=== PATIENT | male | born 1980 | race Asian ===

== ENCOUNTER 2019-12-10 05:42 | Emergency (ER) | payer OTHER ==
[~2019-12-10] VITALS: Ht 180.3 cm; Wt 102.1 kg
[2019-12-10 05:42] VITALS: BP_SYST 166
[2019-12-10] MEDS ORDERED: NACL 0.9% 1,000 ML IV ONE (05:57)
[2019-12-10] MEDS ORDERED: DIPHENHYDRAMINE INJ 50 MG/ML VIAL IVP ONE (06:00)
[2019-12-10] MEDS ORDERED: MORPHINE 2 MG/ML INJ. SYRINGE IVP ONE ×3 (06:00→09:30)
[2019-12-10] MEDS ORDERED: ONDANSETRON HCL 4 MG/2 ML VIAL IVP ONE (06:00)
[2019-12-10] MEDS ORDERED: PANTOPRAZOLE SODIUM 40 MG/VIAL (PROTONIX) IVP ONE (06:00)
[2019-12-10 06:31] LABS: BASOPHILS % (AUTO) 0.3 % (0.0-2.0); EOSINOPHILS % (AUTO) 0.1 % (0.0-4.0); HEMOGLOBIN 16.2 g/dL (14.0-18.0); LYMPHOCYTES # (AUTO) 0.6 K/uL (1.0-5.5); LYMPHOCYTES % (AUTO) 5.1 % (20.5-51.5); MEAN CORPUSCULAR HEMOGLOBIN 34 pg (27-31); MEAN CORPUSCULAR HGB CONC 34 % (32-36); MEAN CORPUSCULAR VOLUME 100 fL (79.0-98.0); MONOCYTES # (AUTO) 0.7 K/uL (0.0-1.0); MONOCYTES % (AUTO) 5.9 % (1.7-9.3); NEUTROPHILS # (AUTO) 11.2 K/uL (1.8-7.7); NEUTROPHILS % (AUTO) 88.6 % (40.0-70.0); PLATELET COUNT (AUTO) 188 K/uL (130-430); RED BLOOD CELL COUNT(AUTO) 4.82 MIL/uL (4.2-6.2); RED CELL DISTRIBUTION WIDTH 12.8 % (9.0-15.0); WHITE BLOOD COUNT (AUTO) 12.6 K/uL (4.8-10.8)
[2019-12-10] MEDS ORDERED: LABETALOL 100 MG/ 20ML VIAL IVP ONE (06:45)
[2019-12-10 07:08] LABS: CALCIUM 9.3 mg/dL (8.4-11.0); CREATININE 1.11 mg/dL (0.55-1.30); POTASSIUM 3.8 mmol/L (3.5-5.1)
[2019-12-10] MEDS ORDERED: hydrALAZINE HCL 20 MG/ML VIAL IVP ONE (07:15)
[2019-12-10] MEDS ORDERED: MAG HYDROX/AL HYDROX/SIMETH 30 ML, DICYCLOMINE HCL 20 MG, LIDOCAINE VISCOUS 2% 15ML (PO... PO ONE ×3 (07:15)
[2019-12-10 07:16] LABS: ALBUMIN 3.9 g/dL (3.4-4.8); TOTAL BILIRUBIN 2.5 mg/dL (0.0-1.0)
[2019-12-10 08:31] LABS: BILIRUBIN,URINE 2+ (NEGATIVE); BLOOD, URINE NEGATIVE (NEGATIVE); CLARITY/URINE SL CLOUDY (CLEAR); COLOR,URINE ORANGE (YELLOW); GLUCOSE,URINE NEGATIVE (NEGATIVE); KETONES,URINE 1+ (NEGATIVE); LEUKOCYTE ESTERASE ,URINE NEGATIVE (NEGATIVE); NITRITE, URINE POSITIVE (NEGATIVE); PH,URINE 5.5 (5.0-8.0); PROTEIN URINE 3+ (NEGATIVE)
[2019-12-10 08:48] LABS: BACTERIA,URINE MODERATE /HPF (None Seen); RBC,URINE 0-3 /HPF (0-3); WBC,URINE 0-3 /HPF (0-3)
[2019-12-10 11:25] VITALS: BP_SYST 126
== END 2019-12-10 11:25 | disposition short-term general hospital (02) ==
LOC: SED 05:42
DX: K85.90 Acute pancreatitis without necrosis or infection, unspecified (principal); R10.13 Epigastric pain; I10 Essential (primary) hypertension; R11.2 Nausea with vomiting, unspecified
CPT/HCPCS: 36415; 80053; 81000; 83690; 85025; 87086; 96361; 96374; 96375; 96376; 99285; J7030

== ENCOUNTER 2020-01-29 10:44 | Emergency (ER) | payer OTHER ==
[~2020-01-29] VITALS: Ht 180.3 cm; Wt 112.5 kg
[2020-01-29 10:49] VITALS: BP_SYST 142
--- NOTE | 2020-01-29 10:55 | NUR ---
Patient triaged and placed in waiting room. VSS and patient appears in no acute distress at this time. Awaiting available bed, and MD notified of need for MSE.
[2020-01-29 11:15] VITALS: BP_SYST 142
--- NOTE | 2020-01-29 11:15 | NUR ---
Patient left without being seen.
[2020-01-29] MEDS ORDERED: LOSA25TA18 PO (16:36)
== END 2020-01-29 11:15 | disposition left against medical advice (07) ==
LOC: SED 10:44
DX: R10.9 Unspecified abdominal pain (principal); Z53.21 Procedure and treatment not carried out due to patient leaving prior to being seen by health care provider

== ENCOUNTER 2020-01-29 11:34 | Inpatient (IN) | payer OTHER ==
[~2020-01-29] VITALS: Ht 180.3 cm; Wt 106.6 kg
[2020-01-29 11:41] VITALS: BP_SYST 157
--- NOTE | 2020-01-29 11:45 | NUR ---
Patient triaged and placed in waiting room. VSS and patient appears in no acute distress at this time. Awaiting available bed, and MD notified of need for MSE.
--- NOTE | 2020-01-29 11:45 | NUR ---
ER Dr. Patterson in triage examining patient.
[2020-01-29 13:23] LABS: BASOPHILS % (AUTO) 0.1 % (0.0-2.0); HEMATOCRIT 51.1 % (36-54); HEMOGLOBIN 16.8 g/dL (14.0-18.0); LYMPHOCYTES # (AUTO) 0.8 K/uL (1.0-5.5); LYMPHOCYTES % (AUTO) 5.4 % (20.5-51.5); MEAN CORPUSCULAR HEMOGLOBIN 33 pg (27-31); MEAN CORPUSCULAR HGB CONC 33 % (32-36); MEAN CORPUSCULAR VOLUME 100 fL (79.0-98.0); MONOCYTES # (AUTO) 0.6 K/uL (0.0-1.0); MONOCYTES % (AUTO) 4.1 % (1.7-9.3); NEUTROPHILS # (AUTO) 12.5 K/uL (1.8-7.7); NEUTROPHILS % (AUTO) 90.4 % (40.0-70.0); PLATELET COUNT (AUTO) 247 K/uL (130-430); RED BLOOD CELL COUNT(AUTO) 5.12 MIL/uL (4.2-6.2); RED CELL DISTRIBUTION WIDTH 13.8 % (9.0-15.0); WHITE BLOOD COUNT (AUTO) 13.8 K/uL (4.8-10.8)
[2020-01-29 13:29] LABS: POTASSIUM 4.6 mmol/L (3.5-5.1)
[2020-01-29 13:30] LABS: CALCIUM 8.9 mg/dL (8.4-11.0); CREATININE 1.05 mg/dL (0.55-1.30)
[2020-01-29 13:42] LABS: ALBUMIN 4.3 g/dL (3.4-4.8); TOTAL BILIRUBIN 1.5 mg/dL (0.0-1.0)
[2020-01-29 13:58] LABS: PROTHROMBIN TIME 9.9 SECS (9.5-12.5)
[2020-01-29] MEDS ORDERED: MORPHINE 4 MG/ML INJ. SYRINGE IVP ONE (14:30)
[2020-01-29] MEDS ORDERED: ONDANSETRON HCL 4 MG/2 ML VIAL IVP ONE (14:30)
[2020-01-29 14:44] LABS: CHOLESTEROL 173 mg/dL (<200); HDL CHOLESTEROL 49 mg/dL (>45); LDL CHOLESTEROL 83 mg/dL (<100); TRIGLYCERIDES 247 mg/dL (30-150)
--- NOTE | 2020-01-29 14:58 | NUR ---
Patient to ER bed 4 to gown for evaluation. Side rails up.
[2020-01-29] MEDS ORDERED: NACL 0.9% 1,000 ML IV ONE (15:30)
--- NOTE | 2020-01-29 16:33 | NUR ---
DR ESCOBEDO IN TO ASSESS
[2020-01-29] MEDS ORDERED: LOSA25TA18 PO (16:36)
--- NOTE | 2020-01-29 16:36 | NUR ---
Medication reconciliation completed with information provided by . Any prior medication reconciliation on file was reviewed and corrected.
[2020-01-29] MEDS ORDERED: HYDROmorphone 2 MG/ML VIAL IVP PRN (16:45)
[2020-01-29] MEDS ORDERED: FAMOTIDINE PF 20 MG/2 ML VIAL IVP ONE (16:45)
[2020-01-29] MEDS ORDERED: FOLIC ACID 1 MG, THIAMINE HCL 100 MG, MAGNESIUM SULFATE 1 GM, MVI 10 ML in NACL 0.9% 1,... IV ONE (16:45)
[2020-01-29] MEDS ORDERED: NALOXONE HCL 0.4 MG/ML AMP (NARCAN) IVP PRN ×2 (16:45)
[2020-01-29] MEDS ORDERED: FOLIC ACID 1 MG, MVI 10 ML in NACL 0.9% 1,000 ML IV ONE (16:45)
[2020-01-29] MEDS ORDERED: THIAMINE HCL 100 MG, MAGNESIUM SULFATE 1 GM in NS 100 ML IV ONE (16:45)
[2020-01-29] MEDS ORDERED: LORazepam 2 MG/ML VIAL IVP PRN (17:00)
[2020-01-29] MEDS: PIPERACILLIN/TAZO 3.375/DEX-IS 50 ML IV SCH ×2 (18:31→23:12)
[2020-01-29] MEDS: chlordiazePOXIDE HCL 25 MG CAPSULE PO SCH ×2 (18:39→20:12)
[2020-01-29] MEDS: cloNIDine HCL 0.1 MG TABLET PO PRN (18:39)
--- NOTE | 2020-01-29 18:48 | NUR ---
Patient will be admitted to [facility]. Admitted tTELE unit. Will go to room 101 Belongings list completed. Complete and up to date summary report printed. SBAR report to be given at bedside with opportunity for questions.
--- NOTE | 2020-01-29 18:58 | NUR ---
Admission Note Received patient from ER with diagnosis of ACUTE PANCREATITIS. Initial Plan of Care discussed-patient verbalized understanding. Oriented to room, call light, pain management and safety.
[2020-01-29] MEDS: FAMOTIDINE PF 20 MG/2 ML VIAL IVP SCH (20:12)
[2020-01-29] MEDS: HYDROmorphone 2 MG/ML VIAL IVP PRN (20:13)
[2020-01-29 20:22] VITALS: BP_SYST 155
--- NOTE | 2020-01-29 21:00 | NUR ---
ROUNDS/REFUSED SCD AND BED ALARM pt resting in bed at this time, no s/s of acute distress noted. hob raised, pt on room air, tolerating well, SPO2 at 96%, breathing is unlabored. iv site patent, no signs of infiltration and infection noted. ivf infusing well. bed alarm is off, educated pt on importance of having bed alarm on for safety, will encourage throughout shift. bed locked and at lowest position. pt refused SCD at this time, educated pt on benefits and purpose of having SCD's on, will encourage pt throughout shift. call light with pt, verbalized and demonstrated back proper use of call light if help is needed. will continue to monitor.
--- NOTE | 2020-01-29 23:00 | NUR ---
ROUNDS pt resting in bed, no signs of discomfort noted, hob raised. safety and fall precautions in place. will continue to monitor.
[2020-01-30] VITALS: BP_SYST 161
[2020-01-30] MEDS: HYDROmorphone 2 MG/ML VIAL IVP PRN ×3 (00:17→22:10)
[2020-01-30] MEDS: cloNIDine HCL 0.1 MG TABLET PO PRN (00:27)
[2020-01-30] MEDS: TEMAZEPAM 15 MG CAPSULE PO PRN (00:28)
--- NOTE | 2020-01-30 01:00 | NUR ---
ROUNDS pt resting in bed at this time, no s/s of acute distress noted. hob raised. safety and fall precautions maintained. will continue to monitor.
--- NOTE | 2020-01-30 03:56 | NUR ---
ROUNDS pt resting in bed, no signs of discomfort noted. hob raised. safety and fall precautions maintained. will continue to monitor.
--- NOTE | 2020-01-30 05:00 | NUR ---
ROUNDS pt resting in bed, no s/s of acute distress noted, hob raised. fall and safety precautions in place. will continue to monitor.
[2020-01-30] MEDS: PIPERACILLIN/TAZO 3.375/DEX-IS 50 ML IV SCH ×4 (05:06→23:10)
[2020-01-30 06:15] LABS: BASOPHILS % (AUTO) 0.2 % (0.0-2.0); EOSINOPHILS % (AUTO) 0.1 % (0.0-4.0); HEMOGLOBIN 15.7 g/dL (14.0-18.0); LYMPHOCYTES # (AUTO) 0.7 K/uL (1.0-5.5); LYMPHOCYTES % (AUTO) 6.3 % (20.5-51.5); MEAN CORPUSCULAR HEMOGLOBIN 34 pg (27-31); MEAN CORPUSCULAR HGB CONC 33 % (32-36); MEAN CORPUSCULAR VOLUME 101 fL (79.0-98.0); MONOCYTES # (AUTO) 0.9 K/uL (0.0-1.0); MONOCYTES % (AUTO) 8.4 % (1.7-9.3); NEUTROPHILS # (AUTO) 8.8 K/uL (1.8-7.7); PLATELET COUNT (AUTO) 174 K/uL (130-430); RED BLOOD CELL COUNT(AUTO) 4.66 MIL/uL (4.2-6.2); RED CELL DISTRIBUTION WIDTH 13.6 % (9.0-15.0); WHITE BLOOD COUNT (AUTO) 10.3 K/uL (4.8-10.8)
[2020-01-30 06:26] LABS: ALBUMIN 3.3 g/dL (3.4-4.8); CREATININE 1.11 mg/dL (0.55-1.30); TOTAL BILIRUBIN 1.8 mg/dL (0.0-1.0)
--- NOTE | 2020-01-30 06:34 | NUR ---
CLOSING NOTES pt resting in bed at this time, no s/s of acute distress noted. hob raised, pt on room air, tolerating well, breathing is unlabored. iv site patent, no signs of infiltration and infection noted. bed alarm is off, educated pt on importance of having bed alarm on for safety, encouraged pt throughout shift. pt refused scd, educated pt on benefits and purpose of scd, encouraged pt throughout shift. call light with pt, verbalizes and demonstrated back proper use of call light if help is needed. all needs met throughout shift, will continue to monitor until report is given to day shift rn.
--- NOTE | 2020-01-30 07:28 | NUR ---
Opening Note received bedside SBAR report from warehouse worker 2nd shift RN, patient resting in bed, respirations even and unlabored on room air, patient is NPO awaiting abdominal ultrasound this morning, no acute distress noted, educated patient on use of call light and asked to call for assistance, patient verbalized understanding, call light in reach, educated patient on use of bed alarm for patient safety, patient refusing bed alarm, bed in low and locked position.
[2020-01-30 08:00] VITALS: BP_SYST 149
[2020-01-30] MEDS: FAMOTIDINE PF 20 MG/2 ML VIAL IVP SCH ×2 (08:08→20:07)
[2020-01-30] MEDS: FOLIC ACID 1 MG TABLET PO SCH (08:09)
[2020-01-30] MEDS: THIAMINE HCL 100 MG TABLET PO SCH (08:09)
[2020-01-30] MEDS: chlordiazePOXIDE HCL 25 MG CAPSULE PO SCH ×4 (08:09→20:06)
--- NOTE | 2020-01-30 08:45 | NUR ---
Physician Rounds Dr. Gordillo at bedside examining patient, informed Dr. Tracey of critical lab lipase [id number], no new orders.
--- NOTE | 2020-01-30 09:50 | NUR ---
Ultrasound spoke with a and p technician Cynthia, per Celia they will not be able to do patients abdominal US until this afternoon, okay to give patient breakfast and then make patient NPO awaiting abdominal US this afternoon.
[2020-01-30] MEDS: LR 1,000 ML IV SCH ×3 (10:17→23:12)
[2020-01-30] MEDS ORDERED: CARVEDILOL 6.25 MG TABLET (COREG) PO ONE (11:15)
--- NOTE | 2020-01-30 11:40 | NUR ---
RN Rounds patient resting in bed, respirations even and unlabored on room air, patient reports pain is controlled at this time, no acute distress noted.
[2020-01-30 12:00] VITALS: BP_SYST 174
[2020-01-30 13:34] VITALS: BP_SYST 145
--- NOTE | 2020-01-30 13:35 | NUR ---
RN Rounds patient resting in bed, respirations even and unlabored on room air, patient reports pain is controlled at this time, no acute distress noted.
--- NOTE | 2020-01-30 15:50 | NUR ---
RN Rounds patient resting in bed, patient reports that pain is well controlled at this time, provided patient with clean gown.
[2020-01-30 17:41] VITALS: BP_SYST 155
--- NOTE | 2020-01-30 17:45 | NUR ---
RN Rounds patient sitting up in bed eating dinner, tolerating clear liquid diet well, patient denies any nausea or vomiting, patient reports that pain is controlled at this time, no acute distress noted.
--- NOTE | 2020-01-30 19:15 | NUR ---
OPENING NOTES/REFUSED SCD AND BED ALARM received report from day shift rn. no s/s of acute distress noted. pt on room air, tolerating well, hob raised. iv site patent, no signs of infiltration and infection noted. ivf infusing well. pt refused scd's, educated pt on purpose and benefits of having scd's on, will encourage pt throughout shift. pt refused bed alarm, educated pt on importance of having bed alarm for safety, will encourage throughout shift. bed locked and at lowest position. call light with pt, verbalizes and demonstrate back proper use of call light if assistance is needed. will continue to monitor.
--- NOTE | 2020-01-30 19:15 | NUR ---
Closing Note bedside SBAR report given to receiving RN, patient resting in bed, respirations even and unlabored on room air, patient reports pain is controlled, no acute distress noted, educated patient on use of call light and asked to call for assistance, patient verbalized understanding, call light in reach, educated patient on use of bed alarm for patient safety, patient refusing bed alarm, bed in low and locked position, care endorsed to kiss machine operator RN.
[2020-01-30 20:00] VITALS: BP_SYST 145
[2020-01-30] MEDS: CARVEDILOL 6.25 MG TABLET (COREG) PO SCH (20:07)
--- NOTE | 2020-01-30 21:00 | NUR ---
ROUNDS pt resting in bed, no signs of discomfort noted, hob raised. safety and fall precautions in place, will continue to monitor.
--- NOTE | 2020-01-30 23:00 | NUR ---
ROUNDS pt resting in bed, no s/s of acute distress, hob raised. fall and safety precautions in place. will continue to monitor.
[2020-01-31] VITALS: BP_SYST 151
[2020-01-31] MEDS: TEMAZEPAM 15 MG CAPSULE PO PRN (00:56)
--- NOTE | 2020-01-31 01:00 | NUR ---
ROUNDS pt resting at this time, no signs of discomfort noted, hob raised. safety and fall precautions in place. will continue to monitor.
--- NOTE | 2020-01-31 03:00 | NUR ---
ROUNDS pt asleep, no signs of discomfort noted, hob raised. safety and fall precautions in place. will continue to monitor.
--- NOTE | 2020-01-31 05:00 | NUR ---
ROUNDS pt resting at this time, no signs of discomfort noted, hob raised. safety and fall precautions in place. will continue to monitor.
[2020-01-31] MEDS: PIPERACILLIN/TAZO 3.375/DEX-IS 50 ML IV SCH ×2 (06:02→11:33)
[2020-01-31] MEDS: LR 1,000 ML IV SCH ×2 (06:02→11:48)
[2020-01-31 06:20] LABS: BASOPHILS % (AUTO) 0.2 % (0.0-2.0); EOSINOPHILS # (AUTO) 0.1 K/uL (0.0-0.4); EOSINOPHILS % (AUTO) 0.8 % (0.0-4.0); HEMATOCRIT 39.1 % (36-54); LYMPHOCYTES # (AUTO) 0.7 K/uL (1.0-5.5); LYMPHOCYTES % (AUTO) 7.2 % (20.5-51.5); MEAN CORPUSCULAR HEMOGLOBIN 34 pg (27-31); MEAN CORPUSCULAR HGB CONC 33 % (32-36); MEAN CORPUSCULAR VOLUME 101 fL (79.0-98.0); MONOCYTES # (AUTO) 0.9 K/uL (0.0-1.0); MONOCYTES % (AUTO) 8.8 % (1.7-9.3); NEUTROPHILS # (AUTO) 8.2 K/uL (1.8-7.7); PLATELET COUNT (AUTO) 127 K/uL (130-430); RED BLOOD CELL COUNT(AUTO) 3.89 MIL/uL (4.2-6.2); RED CELL DISTRIBUTION WIDTH 13.4 % (9.0-15.0); WHITE BLOOD COUNT (AUTO) 9.8 K/uL (4.8-10.8)
--- NOTE | 2020-01-31 06:38 | NUR ---
CLOSING NOTES pt resting in bed at this time, no s/s of acute distress noted. hob raised, pt on room air, tolerating well, breathing is unlabored. iv site patent, no signs of infiltration and infection noted. bed alarm is off, educated pt on importance of having bed alarm on for safety, encouraged pt throughout shift. pt refused scd's, educated pt on benefits and purpose of scd's, encouraged pt throughout shift. call light with pt, verbalizes and demonstrated back proper use of call light if help is needed. safety and fall precautions maintained throughout shift, all needs met throughout shift, will continue to monitor until report is given to day shift rn.
[2020-01-31 06:47] LABS: ALBUMIN 2.9 g/dL (3.4-4.8); CALCIUM 8.2 mg/dL (8.4-11.0); CREATININE 0.96 mg/dL (0.55-1.30); POTASSIUM 3.5 mmol/L (3.5-5.1); TOTAL BILIRUBIN 1.3 mg/dL (0.0-1.0)
--- NOTE | 2020-01-31 07:13 | NUR ---
Opening Note received bedside SBAR report from retail shift supervisor RN, patient resting in bed, respirations even and unlabored on room air, no acute distress noted, patient reports pain is controlled at this time, IV fluids infusing well, no redness or swelling noted to left forearm IV site, educated patient on use of call light and asked to call for assistance, patient verbalized understanding, call light in reach, educated patient on use of bed alarm for patient safety, patient refusing bed alarm, bed in low and locked position.
[2020-01-31 08:00] VITALS: BP_SYST 155
[2020-01-31] MEDS: THIAMINE HCL 100 MG TABLET PO SCH (08:39)
[2020-01-31] MEDS: chlordiazePOXIDE HCL 25 MG CAPSULE PO SCH ×2 (08:39→11:48)
[2020-01-31] MEDS: FOLIC ACID 1 MG TABLET PO SCH (08:39)
[2020-01-31] MEDS: FAMOTIDINE PF 20 MG/2 ML VIAL IVP SCH (08:39)
[2020-01-31] MEDS: CARVEDILOL 6.25 MG TABLET (COREG) PO SCH (08:47)
--- NOTE | 2020-01-31 09:51 | NUR ---
RN Rounds patient resting in bed, patient reports pain is controlled, patient tolerating clear liquid diet well, patient denies any nausea or vomiting.
--- NOTE | 2020-01-31 11:43 | NUR ---
RN Rounds patient sitting up in bed, respirations even and unlabored on room air, patient reports pain is controlled at this time, no acute distress noted.
[2020-01-31 12:00] VITALS: BP_SYST 146
--- NOTE | 2020-01-31 14:00 | NUR ---
RN Rounds patient resting in bed, respirations even and unlabored on room air, patient reports pain is controlled, no acute distress noted.
[2020-01-31 16:00] VITALS: BP_SYST 146
--- NOTE | 2020-01-31 16:28 | NUR ---
Physician Rounds Dr. Downey bedside speaking with patient and patients May on the telephone, Dr. Downey discussed patients labs/CT scan/US abdomen results with patient and his , Dr. Downey informed patient and his of new prescriptions and that a full liquid low fat diet should be follow at home for the first few days, patient and patients verbalized understanding. Addendum: 01/31/20 at 1733 by Lucia Torres RN add to above note- Dr. Downey educated patient and patients on importance of alcohol cessation and the risk of drinking alcohol, patient and patients verbalized understanding.
[2020-01-31 16:36] VITALS: BP_SYST 146
[2020-01-31] MEDS ORDERED: CARV6.2554 PO (16:40)
[2020-01-31] MEDS ORDERED: THIA100T73 PO (16:40)
[2020-01-31] MEDS ORDERED: FOLI-43 PO (16:41)
[2020-01-31] MEDS ORDERED: LIB10 PO (16:41)
--- NOTE | 2020-01-31 17:05 | NUR ---
Discharge provided patient with discharge packet and instructions, patient verbalized understanding, written prescription provided, IV catheter removed, catheter intact, no bleeding, steady gait noted, no acute distress noted, patient contacted his father, patient taken to parking lot via wheelchair, patient accompanied by his father for discharge home, all belongings sent with patient.
== END 2020-01-31 17:15 | disposition home or self-care (01) | DRG 439 ==
LOC: SED 11:34 → STU 16:25
PROVIDERS: ADMIT Internal Medicine; ATTEND Internal Medicine
DX: K85.20 Alcohol induced acute pancreatitis without necrosis or infection (principal); R65.10 Systemic inflammatory response syndrome (SIRS) of non-infectious origin without acute organ dysfunction; K70.10 Alcoholic hepatitis without ascites; I10 Essential (primary) hypertension; E66.9 Obesity, unspecified; Y90.9 Presence of alcohol in blood, level not specified; E78.00 Pure hypercholesterolemia, unspecified; F10.20 Alcohol dependence, uncomplicated; E78.5 Hyperlipidemia, unspecified; Z68.32 Body mass index [BMI] 32.0-32.9, adult; Z79.899 Other long term (current) drug therapy
CPT/HCPCS: 36415; 76700-TC; 80053; 80061; 82150-TC; 83605; 83615-TC; 83690-TC; 85025; 85610-TC; 85730-TC; 87040-TC; 96361; 96365; 96368; 96375; 99285; G0378; J1170; J2270; J2405; J2543; J3411; J3475; J3490; J7030; J7120

== ENCOUNTER 2021-03-14 10:56 | Emergency (ER) | payer OTHER, SELFPAY ==
[~2021-03-14] VITALS: Ht 180.3 cm; Wt 104.3 kg
[~2021-03-14 10:56] MED LIST: CARV6.2554 PO; FAMO20TA8 PO; FOLI-43 PO; LIB10 PO; LOSA25TA18 PO; LOSA50TA3 PO; THIA100T73 PO; Thiamine Hcl PO
[2021-03-14 11:29] VITALS: BP_SYST 146
[2021-03-14] MEDS ORDERED: KETOROLAC TROMETHAMINE 60 MG/2 ML VIAL IM ONE (12:00)
[2021-03-14 12:30] LABS: BASOPHILS % (AUTO) 0.5 % (0.0-2.0); EOSINOPHILS # (AUTO) 0.1 K/uL (0.0-0.4); HEMATOCRIT 44.7 % (36-54); HEMOGLOBIN 15.2 g/dL (14.0-18.0); LYMPHOCYTES # (AUTO) 0.8 K/uL (1.0-5.5); MEAN CORPUSCULAR HEMOGLOBIN 34 pg (27-31); MEAN CORPUSCULAR HGB CONC 34 % (32-36); MEAN CORPUSCULAR VOLUME 100 fL (79.0-98.0); MONOCYTES # (AUTO) 0.7 K/uL (0.0-1.0); MONOCYTES % (AUTO) 10.3 % (1.7-9.3); NEUTROPHILS # (AUTO) 4.9 K/uL (1.8-7.7); NEUTROPHILS % (AUTO) 76.2 % (40.0-70.0); PLATELET COUNT (AUTO) 205 K/uL (130-430); RED BLOOD CELL COUNT(AUTO) 4.49 MIL/uL (4.2-6.2); WHITE BLOOD COUNT (AUTO) 6.4 K/uL (4.8-10.8)
[2021-03-14 12:48] LABS: CALCIUM 9.5 mg/dL (8.4-11.0); CREATININE 1.07 mg/dL (0.55-1.30); POTASSIUM 4.4 mmol/L (3.5-5.1)
[2021-03-14 12:54] LABS: ALBUMIN 4.2 g/dL (3.4-4.8); TOTAL BILIRUBIN 1.3 mg/dL (0.0-1.0)
[2021-03-14] MEDS ORDERED: HYDR-3917 PO (13:12)
[2021-03-14 13:25] VITALS: BP_SYST 132
== END 2021-03-14 13:22 | disposition home or self-care (01) ==
LOC: SED 10:56
DX: K85.90 Acute pancreatitis without necrosis or infection, unspecified (principal); Z79.899 Other long term (current) drug therapy
CPT/HCPCS: 36415; 80053; 81002; 83690; 85025; 96372; 99283; J1885

== ENCOUNTER 2023-01-21 14:57 | Emergency (ER) | payer OTHER ==
[~2023-01-21] VITALS: Ht 180.3 cm; Wt 104.3 kg
[~2023-01-21 14:57] MED LIST changes: -FAMO20TA8 PO; -FOLI-43 PO; +HYDR-3917 PO; -LIB10 PO; -LOSA50TA3 PO; -THIA100T73 PO; -Thiamine Hcl PO
[2023-01-21 16:06] VITALS: BP_SYST 174; PULSE 101; RESP 18; TEMP 98.2; O2SAT 98
[2023-01-21 16:31] LABS: BASOPHILS % (AUTO) 0.3 % (0.0-2.0); EOSINOPHILS % (AUTO) 0.1 % (0.0-4.0); HEMATOCRIT 48.1 % (36-54); LYMPHOCYTES # (AUTO) 0.7 K/uL (1.0-5.5); LYMPHOCYTES % (AUTO) 4.6 % (20.5-51.5); MEAN CORPUSCULAR HEMOGLOBIN 33 pg (27-31); MEAN CORPUSCULAR HGB CONC 33 % (32-36); MEAN CORPUSCULAR VOLUME 99 fL (79.0-98.0); MONOCYTES # (AUTO) 0.6 K/uL (0.0-1.0); MONOCYTES % (AUTO) 4.3 % (1.7-9.3); NEUTROPHILS # (AUTO) 13.1 K/uL (1.8-7.7); NEUTROPHILS % (AUTO) 90.7 % (40.0-70.0); PLATELET COUNT (AUTO) 225 K/uL (130-430); RED BLOOD CELL COUNT(AUTO) 4.88 MIL/uL (4.2-6.2); WHITE BLOOD COUNT (AUTO) 14.5 K/uL (4.8-10.8)
[2023-01-21 16:33] LABS: BLOOD, URINE NEGATIVE (NEGATIVE); CLARITY/URINE CLEAR (CLEAR); GLUCOSE,URINE NEGATIVE (NEGATIVE); KETONES,URINE 3+ (NEGATIVE); LEUKOCYTE ESTERASE ,URINE NEGATIVE (NEGATIVE); NITRITE, URINE NEGATIVE (NEGATIVE); PH,URINE 8.5 (5.0-8.0); PROTEIN URINE 2+ (NEGATIVE)
[2023-01-21 16:37] LABS: ANION GAP 12 (5-15); CALCIUM 9.4 mg/dL (8.4-11.0); CHLORIDE 101 mmol/L (98-107); CREATININE 1.04 mg/dL (0.55-1.30); GFR AFRICAN AMERICAN 102 mL/min (>90); GLUCOSE 156 mg/dL (74-106); UREA NITROGEN, BLOOD 14 mg/dL (8-21)
[2023-01-21 16:47] LABS: ACETONE, SERUM NEGATIVE (NEGATIVE)
[2023-01-21 16:51] LABS: ALANINE AMINOTRANSFERASE 97 U/L (12-78); ALBUMIN 4.5 g/dL (3.4-4.8); AMYLASE 415 U/L (0-100); ASPARTATE AMINOTRANSFERASE 48 U/L (10-37); LACTATE DEHYDROGENASE 189 U/L (85-227); LIPASE 1664 U/L (73-393); TOTAL BILIRUBIN 1.4 mg/dL (0.0-1.0)
[2023-01-21 16:53] LABS: COLOR,URINE AMBER (YELLOW)
[2023-01-21 16:54] LABS: BILIRUBIN,URINE 1+ (NEGATIVE)
[2023-01-21 16:55] LABS: BACTERIA,URINE FEW /HPF (None Seen); MUCUS,URINE None Seen /LPF (None Seen); RBC,URINE 0-3 /HPF (0-3); WBC,URINE 0-3 /HPF (0-3)
[2023-01-21] MEDS ORDERED: ONDA-8 TL (17:10)
[2023-01-21] MEDS ORDERED: TRAM50TA2 PO (17:10)
[2023-01-21] MEDS ORDERED: IBUP-1971 PO (17:10)
[2023-01-21] MEDS ORDERED: NACL 0.9% 2,000 ML IV ONE (17:15)
[2023-01-21] MEDS ORDERED: MORPHINE 4 MG INJ. 4 MG/ML VIAL IVP ONE (17:15)
[2023-01-21] MEDS ORDERED: ONDANSETRON HCL 4 MG/2 ML VIAL IVP ONE (17:15)
[2023-01-21 18:20] VITALS: BP_SYST 172; PULSE 97; RESP 18; TEMP 98.1; O2SAT 97
== END 2023-01-21 18:20 | disposition home or self-care (01) ==
LOC: SED 14:57
DX: K85.90 Acute pancreatitis without necrosis or infection, unspecified (principal); R10.13 Epigastric pain; R11.0 Nausea; Z79.899 Other long term (current) drug therapy
CPT/HCPCS: 99285; 74176; 96374; 96361; 96375; 80053; 81000; 82009; 82150; 83615; 83690; 85025; 36415; 76376; 83605; J2405; J2270; J7030

== ENCOUNTER 2023-01-23 10:20 | Emergency (ER) | payer OTHER ==
[~2023-01-23] VITALS: Ht 172.7 cm; Wt 81.6 kg
[~2023-01-23 10:20] MED LIST changes: +IBUP-1971 PO; +ONDA-8 TL; +TRAM50TA2 PO
[2023-01-23 10:32] VITALS: BP_SYST 166; PULSE 85; RESP 20; TEMP 98.3; O2SAT 98
[2023-01-23 10:46] LABS: BASOPHILS % (AUTO) 0.2 % (0.0-2.0); EOSINOPHILS % (AUTO) 0.4 % (0.0-4.0); HEMATOCRIT 46.7 % (36-54); HEMOGLOBIN 15.6 g/dL (14.0-18.0); LYMPHOCYTES # (AUTO) 0.9 K/uL (1.0-5.5); LYMPHOCYTES % (AUTO) 9.5 % (20.5-51.5); MEAN CORPUSCULAR HEMOGLOBIN 33 pg (27-31); MEAN CORPUSCULAR HGB CONC 33 % (32-36); MEAN CORPUSCULAR VOLUME 98 fL (79.0-98.0); MONOCYTES # (AUTO) 0.8 K/uL (0.0-1.0); MONOCYTES % (AUTO) 8.2 % (1.7-9.3); NEUTROPHILS # (AUTO) 7.8 K/uL (1.8-7.7); NEUTROPHILS % (AUTO) 81.7 % (40.0-70.0); PLATELET COUNT (AUTO) 202 K/uL (130-430); RED BLOOD CELL COUNT(AUTO) 4.75 MIL/uL (4.2-6.2); WHITE BLOOD COUNT (AUTO) 9.6 K/uL (4.8-10.8)
[2023-01-23 11:05] LABS: ANION GAP 12 (5-15); CALCIUM 9.4 mg/dL (8.4-11.0); CHLORIDE 97 mmol/L (98-107); CREATININE 1.04 mg/dL (0.55-1.30); GFR AFRICAN AMERICAN 102 mL/min (>90); GLUCOSE 124 mg/dL (74-106); UREA NITROGEN, BLOOD 14 mg/dL (8-21)
--- NOTE | 2023-01-23 11:10 | NUR ---
Pt brought by self, A&Ox4, pt presents to ER for follow up after pancreatitis episode few days ago, pt states he feels better, denies N/V/D, skin pink and warm, cap refill <3, VSS
--- NOTE | 2023-01-23 11:15 | NUR ---
Dr Patterson evaluating patient at bedside
[2023-01-23 11:37] LABS: ALANINE AMINOTRANSFERASE 58 U/L (12-78); ALBUMIN 4.2 g/dL (3.4-4.8); AMYLASE 176 U/L (0-100); ASPARTATE AMINOTRANSFERASE 25 U/L (10-37); LIPASE 704 U/L (73-393); TOTAL BILIRUBIN 1.3 mg/dL (0.0-1.0)
[2023-01-23 12:23] LABS: ACETONE, SERUM POSITIVE (NEGATIVE)
--- NOTE | 2023-01-23 12:23 | NUR ---
Patient given written and verbal discharge instructions and verbalizes understanding. ER MD discussed with patient the results and treatment provided. Patient in stable condition. ID arm band removed. No Rx given. Patient educated on pain management and to follow up with PMD. Pain Scale 3/10 . Opportunity for questions provided and answered. Medication side effect fact sheet provided.
[2023-01-23 12:24] VITALS: BP_SYST 166; PULSE 85; RESP 20; TEMP 98.3; O2SAT 98
== END 2023-01-23 12:23 | disposition home or self-care (01) ==
LOC: SED 10:20
DX: K85.90 Acute pancreatitis without necrosis or infection, unspecified (principal); R10.9 Unspecified abdominal pain; Z79.899 Other long term (current) drug therapy
CPT/HCPCS: 36415; 80053; 82009; 82150; 83605; 83690; 85025; 99283